=== PATIENT | male | born 1990 | race Two or more races ===

== ENCOUNTER 2020-06-23 17:14 | Emergency (ER) | payer OTHER ==
[2020-06-23 17:20] VITALS: BP 127/78; PULSE 72; TEMP 97.9; BMI 27.4
[2020-06-23] MEDS ORDERED: ACETAMINOPHEN 325 MG TABLET (FP) PO ONE (17:23)
[2020-06-23] MEDS ORDERED: ACETAMINOPHEN 325 MG TABLET (FP) ONE (17:23)
== END 2020-06-23 17:45 | disposition home or self-care (01) ==
LOC: FER 17:14
DX: H93.13 Tinnitus, bilateral (principal); Z00.00 Encounter for general adult medical examination without abnormal findings
CPT/HCPCS: 99283-25

== ENCOUNTER 2021-04-16 02:14 | Emergency (ER) | payer OTHER ==
[2021-04-16 02:18] VITALS: BP 126/91; PULSE 78; BMI 28.2
[2021-04-16] MEDS ORDERED: MAG HYDROX/AL HYDROX/SIMETH 30 ML UNIT-DOSE CUP PO ONE (02:35)
[2021-04-16] MEDS ORDERED: FAMOTIDINE 20 MG/50 ML IVPB 20 MG/50 ML MG IVPB ONE (02:35)
[2021-04-16] MEDS ORDERED: MAG HYDROX/AL HYDROX/SIMETH 30 ML UNIT-DOSE CUP ONE (02:39)
[2021-04-16 02:46] LABS: BASO % 0.4 % (0-2.0); EOS % 4.2 % (0-4.5); HEMOGLOBIN 14.8 GM/dL (11.7-16.9); LYMPH % 32.3 % (8-40); MCH 30.4 pg (25.7-33.7); MCHC 33.7 g/dl (32.0-35.9); MEAN CELL VOLUME 90.2 fl (80-96); MEAN PLT VOLUME 7.6 fl (7.5-11.1); MONO % 4.2 % (3.8-10.2); NEUT % 58.9 % (42.8-82.8); PLATELET COUNT 322 10^3/uL (134-434); RBC 4.87 M/mm3 (4.00-5.60); RDW 13.3 % (11.9-15.9); WHITE BLOOD COUNT 9.4 K/mm3 (4.0-10.0)
[2021-04-16 03:02] LABS: CHLORIDE 103 mmol/L (98-107); SODIUM 138 mmol/L (136-145)
[2021-04-16 03:04] LABS: ALBUMIN 4.3 g/dl (3.4-5.0); ANION GAP 9 MMOL/L (8-16); BLOOD UREA NITROGEN 17.1 mg/dL (7-18); CALCIUM 9.5 mg/dL (8.5-10.1); CO2 27 mmol/L (21-32); GLUCOSE,RANDOM 85 mg/dL (74-106)
[2021-04-16 03:07] LABS: SGPT/ALT 36 U/L (13-61)
[2021-04-16 03:08] LABS: CREATININE 0.9 mg/dL (0.55-1.3); SGOT/AST 20 U/L (15-37)
[2021-04-16 03:09] LABS: BILIRUBIN,TOTAL 0.3 mg/dL (0.2-1)
[2021-04-16] MEDS ORDERED: SUCRALFATE 1 GM/10 ML UNIT DOSE CUPS PO ONE (03:09)
[2021-04-16 03:10] LABS: ALK PHOS 55 U/L (45-117)
[2021-04-16] MEDS ORDERED: SUCRALFATE 1 GM TABLET (FP) ONE (03:13)
[2021-04-16] MEDS ORDERED: ACETAMINOPHEN 1000 MG/100 ML BAG IVPB ONE (03:28)
[2021-04-16] MEDS ORDERED: ACETAMINOPHEN INJECTION 100 ML IVPB ONE (03:30)
[2021-04-16 03:37] VITALS: TEMP 97.8
[2021-04-16] MEDS ORDERED: SIMETHICONE 40 MG/0.6 ML BOTTLE PO ONE (04:52)
== END 2021-04-16 05:26 | disposition home or self-care (01) ==
LOC: JER 02:14
PROC: 3E033NZ Introduction of Analgesics, Hypnotics, Sedatives into Peripheral Vein, Percutaneous Approach (ICD-10-PCS; principal; 2021-04-16)
PROC: 3E033GC Introduction of Other Therapeutic Substance into Peripheral Vein, Percutaneous Approach (ICD-10-PCS; 2021-04-16)
DX: R07.2 Precordial pain (principal); R14.1 Gas pain
CPT/HCPCS: 36415; 71046-TC-FY; 71260-TC; 74177-TC; 80053; 82550; 82553; 83605; 84484; 85025; 93005; 93010; 99285-25; J0131; Q9967

== ENCOUNTER 2021-05-09 01:29 | Emergency (ER) | payer OTHER ==
[2021-05-09 01:34] VITALS: BMI 28.2
[2021-05-09 01:38] VITALS: BP 129/70; PULSE 69; TEMP 98.5
[2021-05-09] MEDS ORDERED: IBUPROFEN 600 MG TABLET (FP) PO ONE ×2 (01:41→01:42)
== END 2021-05-09 02:00 | disposition home or self-care (01) ==
LOC: FER 01:29
DX: M25.531 Pain in right wrist (principal); M25.532 Pain in left wrist; V49.50XA Passenger injured in collision with unspecified motor vehicles in traffic accident, initial encounter
CPT/HCPCS: 73130-TC-LT-FY; 99283-25

== ENCOUNTER 2022-11-08 07:02 | Emergency (ER) | payer OTHER ==
[2022-11-08 07:10] VITALS: BP 123/88; PULSE 87; RESP 16; TEMP 98.2; BMI 28.3
[2022-11-08] MEDS ORDERED: IBUPROFEN 600 MG TABLET (FP) PO ONE ×2 (07:22→07:38)
== END 2022-11-08 08:08 | disposition home or self-care (01) ==
LOC: FER 07:02
DX: S49.91XA Unspecified injury of right shoulder and upper arm, initial encounter (principal); S80.02XA Contusion of left knee, initial encounter; Y04.0XXA Assault by unarmed brawl or fight, initial encounter
CPT/HCPCS: 73560-TC-LT-FY; 99283-25